=== PATIENT | male | born 1990 | race African-American/Black ===

== ENCOUNTER 2018-08-12 06:26 | Emergency (ER) | payer SELFPAY ==
[~2018-08-12] VITALS: Ht 180.3 cm; Wt 69.4 kg
[2018-08-12 06:32] VITALS: Ht 180.3 cm; Wt 69.4 kg
[2018-08-12 07:38] VITALS: BP 142/73
== END 2018-08-12 07:38 | disposition home or self-care (01) ==
LOC: ED 06:26
DX: Z00.00 Encounter for general adult medical examination without abnormal findings (principal); F17.210 Nicotine dependence, cigarettes, uncomplicated; F19.10 Other psychoactive substance abuse, uncomplicated
CPT/HCPCS: 99406

== ENCOUNTER 2018-09-05 03:26 | Emergency (ER) | payer MEDICAID ==
[~2018-09-05] VITALS: Ht 180.3 cm; Wt 70.0 kg
[2018-09-05 03:30] VITALS: Ht 180.3 cm; Wt 70.0 kg
[2018-09-05 04:20] VITALS: BP 163/58
== END 2018-09-05 04:21 | disposition home or self-care (01) ==
LOC: ED 03:26
DX: S39.012A Strain of muscle, fascia and tendon of lower back, initial encounter (principal); V19.88XA Pedal cyclist (driver) (passenger) injured in other specified transport accidents, initial encounter; Y93.I9 Activity, other involving external motion; Y92.413 State road as the place of occurrence of the external cause; Y99.8 Other external cause status

== ENCOUNTER 2018-09-11 11:03 | Emergency (ER) | payer OTHER ==
[~2018-09-11] VITALS: Ht 180.3 cm; Wt 68.9 kg
[2018-09-11 11:25] VITALS: BP 130/79; Ht 180.3 cm; Wt 68.9 kg
[2018-09-11 14:14] LABS: BASOPHIL % 0.4 % (0-2); PLATELET COUNT 239 x10^3mcL (130-400); RED CELL DISTRIBUTION WIDTH 14.4 % (11.5-14.5)
[2018-09-11 14:22] LABS: CALCIUM 9.1 mg/dL (8.5-10.1); CARBON DIOXIDE 32.6 mmol/L (21-32); CHLORIDE SERUM 102 mmol/L (98-107); CREATININE SERUM 0.9 mg/dL (0.7-1.3); GFR1 > 60 mL/min; GLUCOSE SERUM 106 mg/dL (74-106); POTASSIUM SERUM 4.2 mmol/L (3.5-5.1); SODIUM SERUM 142 mmol/L (136-145)
[2018-09-11 15:33] LABS: AMPHETAMINE QUAL UR POSITIVE (See below)
== END 2018-09-11 15:57 | disposition home or self-care (01) ==
LOC: ED 11:03
PROVIDERS: Emergency Medicine
DX: R60.9 Edema, unspecified (principal); F15.90 Other stimulant use, unspecified, uncomplicated
CPT/HCPCS: 36415; 82962; Q0092

== ENCOUNTER 2018-09-13 20:04 | Emergency (ER) | payer OTHER ==
[~2018-09-13] VITALS: Ht 180.3 cm; Wt 68.0 kg
[2018-09-13 20:07] VITALS: BP 123/71; Ht 180.3 cm; Wt 68.0 kg
== END 2018-09-13 20:45 | disposition home or self-care (01) ==
LOC: ED 20:04
DX: Z13.89 Encounter for screening for other disorder (principal); M79.89 Other specified soft tissue disorders

== ENCOUNTER 2018-09-18 00:05 | Emergency (ER) | payer OTHER ==
[~2018-09-18] VITALS: Ht 180.3 cm; Wt 73.0 kg
[2018-09-18 00:14] VITALS: Ht 180.3 cm; Wt 73.0 kg
[2018-09-18 01:27] VITALS: BP 132/71
== END 2018-09-18 01:27 | disposition home or self-care (01) ==
LOC: ED 00:05
DX: S01.81XD Laceration without foreign body of other part of head, subsequent encounter (principal); W19.XXXD Unspecified fall, subsequent encounter

== ENCOUNTER 2018-10-16 01:24 | Emergency (ER) | payer OTHER ==
[~2018-10-16] VITALS: Ht 170.2 cm; Wt 72.6 kg
[2018-10-16 01:29] VITALS: Ht 170.2 cm; Wt 72.6 kg
[2018-10-16 04:20] VITALS: BP 119/78
== END 2018-10-16 04:20 | disposition home or self-care (01) ==
LOC: ED 01:24 → EDBD 01:24 → ED 04:20
DX: R51 Headache (principal); F17.210 Nicotine dependence, cigarettes, uncomplicated
CPT/HCPCS: J1885; Q0162

== ENCOUNTER 2018-11-01 08:38 | Emergency (ER) | payer OTHER ==
[~2018-11-01] VITALS: Ht 180.3 cm; Wt 68.9 kg
[2018-11-01 08:41] VITALS: Ht 180.3 cm; Wt 68.9 kg
[2018-11-01 09:47] VITALS: BP 124/73
== END 2018-11-01 09:47 | disposition home or self-care (01) ==
LOC: ED 08:38 → EDBD 08:38 → ED 09:47
DX: G43.909 Migraine, unspecified, not intractable, without status migrainosus (principal)
CPT/HCPCS: J8597

== ENCOUNTER 2018-12-18 01:47 | Emergency (ER) | payer OTHER ==
[~2018-12-18] VITALS: Ht 180.3 cm; Wt 65.8 kg
[2018-12-18 03:45] LABS: BASOPHIL % 1.2 % (0-2); PLATELET COUNT 206 x10^3mcL (130-400); RED CELL DISTRIBUTION WIDTH 12.7 % (11.5-14.5)
[2018-12-18 04:02] LABS: AMPHETAMINE QUAL UR POSITIVE (See below)
[2018-12-18 04:21] LABS: CALCIUM 9.1 mg/dL (8.5-10.1); CARBON DIOXIDE 30.5 mmol/L (21-32); CHLORIDE SERUM 106 mmol/L (98-107); CREATININE SERUM 1.1 mg/dL (0.7-1.3); GFR1 > 60 mL/min; GLUCOSE SERUM 63 mg/dL (74-106); POTASSIUM SERUM 3.7 mmol/L (3.5-5.1); SODIUM SERUM 146 mmol/L (136-145)
[2018-12-18 04:25] LABS: ALBUMIN 3.9 g/dL (3.4-5.0); ALKALINE PHOSPHATASE 61 U/L (46-116); ALT/SGPT 20 U/L (16-63); AST/SGOT 34 U/L (15-37); BILIRUBIN TOTAL 1.4 mg/dL (0.20-1.00); TOTAL PROTEIN, SERUM 7.5 g/dL (6.4-8.2)
[2018-12-18 09:10] VITALS: BP 116/61
== END 2018-12-18 09:10 | disposition home or self-care (01) ==
LOC: ED 01:47
PROVIDERS: Emergency Medicine
DX: F15.10 Other stimulant abuse, uncomplicated (principal)
CPT/HCPCS: 36415; G0480

== ENCOUNTER 2019-01-06 14:38 | Emergency (ER) | payer OTHER ==
[~2019-01-06] VITALS: Ht 180.3 cm; Wt 70.3 kg
[2019-01-06 15:34] VITALS: BP 115/95; Ht 180.3 cm; Wt 70.3 kg
== END 2019-01-06 16:30 | disposition left against medical advice (07) ==
LOC: ED 14:38
DX: Z53.21 Procedure and treatment not carried out due to patient leaving prior to being seen by health care provider (principal)

== ENCOUNTER 2019-01-07 05:49 | Emergency (ER) | payer OTHER, MEDICAID ==
[~2019-01-07] VITALS: Ht 180.3 cm; Wt 69.9 kg
[2019-01-07 05:52] VITALS: Ht 180.3 cm; Wt 69.9 kg
[2019-01-07 07:06] VITALS: BP 121/70
== END 2019-01-07 07:06 | disposition home or self-care (01) ==
LOC: ED 05:49
DX: R60.0 Localized edema (principal); F31.9 Bipolar disorder, unspecified
CPT/HCPCS: Q0092

== ENCOUNTER 2019-08-18 07:42 | Emergency (ER) | payer MEDICAID, SELFPAY ==
[~2019-08-18] VITALS: Ht 185.4 cm; Wt 81.6 kg
[2019-08-18 07:51] VITALS: Ht 185.4 cm; Wt 81.6 kg
[2019-08-18 09:34] VITALS: BP 128/71
== END 2019-08-18 09:34 | disposition home or self-care (01) ==
LOC: ED 07:42
DX: J20.9 Acute bronchitis, unspecified (principal)
CPT/HCPCS: 87804; Q0092

== ENCOUNTER 2019-09-13 05:07 | Emergency (ER) | payer MEDICAID ==
[~2019-09-13] VITALS: Ht 182.9 cm; Wt 74.8 kg
[2019-09-13 05:08] VITALS: Ht 182.9 cm; Wt 74.8 kg
[2019-09-13 06:48] VITALS: BP 123/75
== END 2019-09-13 06:48 | disposition home or self-care (01) ==
LOC: ED 05:07
DX: J06.9 Acute upper respiratory infection, unspecified (principal); F17.210 Nicotine dependence, cigarettes, uncomplicated; F12.90 Cannabis use, unspecified, uncomplicated
CPT/HCPCS: 99406; Q0092